=== PATIENT | female | born 2000 | race African-American/Black ===

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

== ENCOUNTER 2020-04-26 15:23 | Emergency (ER) | payer SELFPAY ==
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
[2020-04-26 18:05] VITALS: BP 105/68; TEMP 98.1; O2SAT 98
== END 2020-04-26 17:55 | disposition home or self-care (01) ==
LOC: ER 15:23
DX: S00.83XA Contusion of other part of head, initial encounter (principal); S93.402A Sprain of unspecified ligament of left ankle, initial encounter; V93.63XA Machinery accident on board other powered watercraft, initial encounter; Y92.828 Other wilderness area as the place of occurrence of the external cause